=== PATIENT | male | born 1985 | race Caucasian/White ===

== ENCOUNTER 2019-07-17 19:20 | Emergency (ER) | payer BC ==
[2019-07-17] MEDS ORDERED: Orphenadrine 100 MG Tab.ER PO STA (22:11)
--- NOTE | 2019-07-17 22:20 | EDM.PDOC ---
ED HPI GENERAL MEDICAL PROBLEM - General Chief Complaint: Back Pain or Injury Stated Complaint: BACK PAIN Time Seen by Provider: 07/17/19 21:46 Source of Information: Reports: Patient History Limitations: Reports: No Limitations - History of Present Illness INITIAL COMMENTS - FREE TEXT/NARRATIVE: Mr. Angeles is a very pleasant 33-year-old man with a past medical history significant for chronic lower back pain since 2009 due to degenerative disc disease, who states that he slipped and fell on ice, landing on his lower back 3 days ago, causing an exacerbation of his pain. He then lifted something heavy at work today, causing anterior right thigh pain. He denies tingling, numbness, or weakness to his right lower extremity, just anterior thigh pain. He states that there is no chance that he strained a muscle in his right lower extremity. He states that his lower back pain is constant, made worse if he leans to the right or to the left, or if he extends his back. He has not identified any modifiers that make his back pain feel better. He states that he ordinarily takes ibuprofen 800 mg BID, along with cyclobenzaprine (Flexeril) once a day and one other medicine whose name he does not recall, but that these have not given him any relief. The patient denies recent fever, chills, cough, dyspnea, chest pain, palpitations, nausea, vomiting, constipation, diarrhea, abdominal pain, urinary symptoms, recent weight gain or weight loss, recent bloody bowel movements or black bowel movements, recent joint aches, headaches, or rashes. The patient drove himself here. The patient's PCP is Macy [facility] NP, at [facility]. He received an influenza vaccine this season. Bilateral Lower Back Pain Score (Numeric/FACES): 4 - Related Data Allergies Allergy/AdvReac Type Severity Reaction Status Date / Time No Known Allergies Allergy Verified 07/17/19 19:43 Home Meds: Home Meds Acetaminophen/HYDROcodone [[place] 325-5 MG] 1 - 2 tab PO Q6H PRN #12 tablet 07/17 [Rx] Orphenadrine [Norflex] 1 tab PO Q12H PRN #14 tab 07/17/19 [Rx] traZODone HCl [Trazodone HCl] 0 mg PO BEDTIME 07/17/19 [History] Past Medical History Musculoskeletal History: Reports: Back Pain, Chronic (DDD) Neurological History: Reports: Brain Injury, Head Trauma Psychiatric History: Reports: Other (See Below) (Insomnia) Endocrine/Metabolic History: Reports: Obesity/BMI 30+ - Past Surgical History HEENT Surgical History: Reports: Oral Surgery (wisdom teeth extraction) Male Surgical History: Reports: Vasectomy Social & Family History - Tobacco Use Smoking Status *Q: Current Some Day Smoker Tobacco Use Within Last Twelve Months: Smokeless Tobacco (chews 2 cans/day) - Caffeine Use Caffeine Use: Reports: Coffee, Tea - Alcohol Use Alcohol Use History: No - Recreational Drug Use Recreational Drug Use: No - Living Situation & Occupation Living situation: Reports: , with Spouse, with Family (4 kids) Occupation: Employed ([employer]) ED ROS GENERAL - Review of Systems Review Of Systems: Comprehensive ROS is negative, except as noted in HPI. ED EXAM,LOWER BACK PAIN/INJURY - Physical Exam Exam: See Below Exam Limited By: No Limitations General Appearance: Alert, WD/WN, No Apparent Distress (moves easily in exam room) Eye Exam: Bilateral Eye: EOMI, Normal Inspection Ears: Normal External Exam, Hearing Grossly Normal Nose: Normal Inspection Throat/Mouth: Normal Inspection, Normal Lips, Normal Voice, No Airway Compromise Head: Atraumatic, Normocephalic Neck: Normal Inspection, Full Range of Motion Respiratory/Chest: No Respiratory Distress, Lungs Clear, Normal Breath Sounds, No Accessory Muscle Use Cardiovascular: Normal Peripheral Pulses, Regular Rate, Rhythm, No Edema, No Gallop, No JVD, No Murmur, No Rub GI/Abdominal: Normal Bowel Sounds, Soft, Non-Tender, No Organomegaly, No Distention, No Abnormal Bruit, No Mass (Male) Exam: Deferred Rectal (Males) Exam: Deferred Back Exam: Normal Inspection, Full Range of Motion, Paraspinal Tenderness ( bilateral, lower lumbar). No: CVA Tenderness (L), CVA Tenderness (R), Vertebral Tenderness Extremities: Normal Inspection, Normal Range of Motion, No Pedal Edema, Normal Capillary Refill Neurological: Alert, Normal Dorsiflexion, Normal Plantar Flexion, Normal Gait, No Motor/Sensory Deficits, Oriented x 3, Other (Straight leg raise negative to 90 degrees on the right. Straight leg raise induces low back pain, but no radicular symptoms, at 60 degrees on the left. The patient is able to flex his spine to 90 degrees, but extend only to 20 degrees. He is able to tilt his spine bilaterally to 20 degrees. He is able to twist his spine bilaterally to 45 degrees. Unilateral knee bend is normal bilaterally.) Psychiatric: Normal Affect Skin Exam: Warm, Dry, Intact, Normal Color, No Rash Course - Vital Signs Last Recorded V/S: Last Vital Signs Temp 37.2 C 07/17/19 19:40 Pulse 66 07/17/19 19:40 Resp 16 07/17/19 19:40 BP 159/107 H 07/17/19 19:40 Pulse Ox 95 07/17/19 19:40 - Orders/Labs/Meds Meds: Medications Discontinued Medications Generic Name Dose Route Start Last Admin Trade Name Andressa PRN Reason Stop Dose Admin Orphenadrine Citrate 100 mg 07/17/19 22:11 07/17/19 22:16 Norflex PO 07/17/19 22:12 100 mg ONETIME STA Administration - Re-Assessments/Exams Free Text/Narrative Re-Assessment/Exam: 07/17/19 22:12 The patient's history and physical exam are more consistent with lower back muscle spasm, and not really consistent with lumbar radiculopathy. No bruising was seen to his lower back, where he states he landed when he fell on ice 3 days ago. He reports that after he lifted something heavy today, he has anterior (not lateral) right thigh pain (not tingling, numbness, or weakness). On examination, he reported low back pain with a straight leg raise to 60 degrees on the left, but none whatsoever on the right, even at 90 degrees ( straight leg raise on the right should have induced radicular symptoms). He is able to flex to 90 degrees, but extend to only 20 degrees (note that flexion increases intervertebral disc pressure, whereas extension relieves pressure). He is only able to tilt bilaterally to 20 degrees, but is able to twist his spine to 45 degrees bilaterally (note that tilting does not increase intervertebral disc pressure, whereas twisting does). Lastly, he is already taking ibuprofen, Flexeril, and one other medication, whose name he does not recall, for his lower back pain, which was not so severe that it kept him from work today, and will not be keeping him from work tomorrow (he declined an offer for a note for work). I am not sure what he was hoping we would offer him , other than an opioid. For today's purposes, I will switch the patient's Flexeril to Norflex, have him continue to take [id number] ibuprofen, and I will prescribe some [place]. Departure - Departure Time of Disposition: 22:20 Disposition: Home, Self-Care 01 Condition: Good Clinical Impression: Acute exacerbation of chronic low back pain - Discharge Information *PRESCRIPTION DRUG MONITORING PROGRAM REVIEWED*: Not Applicable *COPY OF PRESCRIPTION DRUG MONITORING REPORT IN PATIENT MICHEL: Not Applicable Prescriptions: Acetaminophen/HYDROcodone [[place] 325-5 MG] 1 - 2 tab PO Q6H PRN #12 tablet PRN Reason: Pain (Severe 7-10) Orphenadrine [Norflex] 1 tab PO Q12H PRN #14 tab PRN Reason: Muscle Spasm Instructions: Acute Pain, Adult Referrals: Macy Harris NP [Ordering Only Provider] - Forms: ED Department Discharge Additional Instructions: You were seen in the emergency room for an exacerbation of your lower back pain after slipping and falling on ice and after lifting a heavy object at work. Your history and physical examination are consistent with your back pain being from a muscle spasm, not from a herniated intervertebral disc. You have been started on the muscle relaxant Norflex, and a prescription for Norflex has been provided to you. Take 1 tablet of Norflex every 12 hours, starting tomorrow morning, 07/18/2019, as prescribed. If you take Norflex, DO NOT also take the other muscle relaxant (presumably Flexeril). In addition to Norflex, we recommend that you take [id number] ibuprofen, 3 tablets (600 mg) every 8 hours, with food, [id number]. Take 1 to 2 tablets of the opioid pain reliever [place] up to every 6 hours, as needed for pain not relieved by ibuprofen. If you take [place], do not drive or operate heavy machinery for 12 hours afterwards. [place] may cause constipation, so consider taking a stool softener. Follow-up with your PCP, Macy Harris NP, at [facility], at the next available appointment. If any other problems, please do not hesitate to return to the ER. Sepsis Event Note - Evaluation Sepsis Screening Result: No Definite Risk - Focused Exam Date Exam was Performed: 07/19/19 Time Exam was Performed: 08:44
== END 2019-07-17 22:35 | disposition home or self-care (01) ==
LOC: JD.ED 19:20
DX: G89.29 Other chronic pain (principal); M54.5 Low back pain; F17.220 Nicotine dependence, chewing tobacco, uncomplicated
CPT/HCPCS: 99283; A9270

== ENCOUNTER 2022-03-26 18:37 | Emergency (ER) | payer SELFPAY ==
[2022-03-26] MEDS ORDERED: Diphtheria,Pertussis(Acell),Tetanus Vaccine 0.5 ML Syringe IM ONE (20:50)
[2022-03-26] MEDS ORDERED: Lidocaine 1% 10 ML MDV INJECT ONE (20:50)
== END 2022-03-26 21:43 | disposition home or self-care (01) ==
LOC: JD.ED 18:37
DX: S61.011A Laceration without foreign body of right thumb without damage to nail, initial encounter (principal); E66.9 Obesity, unspecified; Z23 Encounter for immunization; Z68.42 Body mass index [BMI] 45.0-49.9, adult; W26.8XXA Contact with other sharp object(s), not elsewhere classified, initial encounter
CPT/HCPCS: 12001; 90471; 90715; 99282-25